=== PATIENT | female | born 1980 | race Asian ===

== ENCOUNTER 2019-06-23 10:59 | Emergency (ER) | payer OTHER ==
[~2019-06-23] VITALS: Ht 160 cm; Wt 79.4 kg
[2019-06-23] MEDS ORDERED: ONDANSETRON PF 4 MG/2 ML VIAL. IVP ONE (11:30)
[2019-06-23] MEDS ORDERED: MORPHINE SULFATE 4 MG/ML DISP.SYRIN. IV ONE ×2 (11:30→15:15)
--- NOTE | 2019-06-23 11:36 | PHYS DOC ---
Adult General Chief Complaint Chief Complaint: ABDOMINAL PAIN HPI HPI 38-year-old female presents with right lower quadrant abdominal pain. She was recently diagnosed with a uterine mass as well as appendicitis. Her surgery scheduled by [employer] for 6 days from now. The patient started having increased right lateral and right lower quadrant pain overnight. I comes and goes in waves. It is moderate to severe. After 7 AM this morning, the pain has been more intense and more frequent. She is concerned that she cannot wait for her surgery. She denies fever or chills. She is nauseous, but is not vomiting. Review of Systems Review of Systems Constitutional: Denies fever or chills [] Eyes: Denies change in visual acuity, redness, or eye pain [] HENT: Denies nasal congestion or sore throat [] Respiratory: Denies cough or shortness of breath [] Cardiovascular: No additional information not addressed in HPI [] GI: RLQ abdominal pain, nausea. Denies vomiting, bloody stools or diarrhea [] : Denies dysuria or hematuria [] Musculoskeletal: Denies back pain or joint pain [] Integument: Denies rash or skin lesions [] Neurologic: Denies headache, focal weakness or sensory changes [] Endocrine: Denies polyuria or polydipsia [] All other systems were reviewed and found to be within normal limits, except as documented in this note. Current Medications Current Medications Current Medications Medications (Trade) Dose Ordered Sig/[facility] Start Time Stop Time Status Last Admin Dose Admin Morphine Sulfate (Morphine 4mg Syringe) 4 mg 1X ONCE 06/23/19 11:30 06/23/19 11:31 DC 06/23/19 11:26 4 MG Ondansetron HCl (Zofran) 4 mg 1X ONCE 06/23/19 11:30 06/23/19 11:31 DC 06/23/19 11:27 4 MG Allergies Allergies Allergies Coded Allergies Type Severity Reaction Last Updated Verified sodium bicarbonate Allergy Intermediate 06/23/19 Yes sodium chloride Allergy Intermediate 06/23/19 Yes Physical Exam Physical Exam Constitutional: Well developed, well nourished, mild acute distress, non-toxic appearance. [] HENT: Normocephalic, atraumatic, bilateral external ears normal, oropharynx moist, no oral exudates, nose normal. [] Eyes: PERRLA, EOMI, conjunctiva normal, no discharge. [] Neck: Normal range of motion, no tenderness, supple, no stridor. [] Cardiovascular:Heart rate regular rhythm, no murmur [] Lungs & Thorax: Bilateral breath sounds clear to auscultation [] Abdomen: Bowel sounds normal, soft, moderate RLQ tenderness without rebound, no masses, no pulsatile masses. [] Skin: Warm, dry, no erythema, no rash. [] Back: No tenderness, no CVA tenderness. [] Extremities: No tenderness, no cyanosis, no clubbing, ROM intact, no edema. [] Neurologic: Alert and oriented X 3, normal motor function, normal sensory function, no focal deficits noted. [] Psychologic: Affect normal, judgement normal, mood normal. [] EKG EKG [] Radiology/Procedures Radiology/Procedures [] Impressions: PQRS Compliance Statement: One or more of the following individualized dose reduction techniques were utilized for this examination: 1. Automated exposure control 2. Adjustment of the mA and/or kV according to patient size 3. Use of iterative reconstruction technique CT abdomen/pelvis with contrast 06/23/2019 11:14 AM INDICATION: Right lower arm normal pain with recent diagnosis of appendicitis. Surgery scheduled with increased pain. COMPARISON: None available TECHNIQUE: Multiple axial CT images of the abdomen and pelvis were obtained after the intravenous administration of nonionic contrast. Coronal and sagittal reformats are provided. FINDINGS: 5 mm solid noncalcified pulmonary nodule in the lateral left lower lobe most favors benign noncalcified granulomatous disease in this age group. Heart size is within normal limits. Liver, spleen, bilateral adrenal glands and pancreas are normal in appearance. Gallbladder surgically absent. Abdominal aorta is normal in course and caliber. No pathologically enlarged lymph nodes are identified in abdomen and pelvis. There is no free fluid or free intracranial air. There is wall thickening and dilatation of the appendix measuring up to 13 mm with periappendiceal plantar changes compatible with appendicitis. No periappendiceal abscess or perforation. Mild reactive changes involving the terminal ileum. Septated cystic density in the right adnexa measures 4.0 x 4.2 cm and may represent a right ovary with follicular changes. There is a homogeneously enhancing circumscribed mass involving the right uterine fundus measuring 4.4 x 5.0 cm compatible with uterine leiomyoma. No suspicious left adnexal mass. For the changes are noted in the left adnexa with a dominant follicle measuring 2.8 cm. Prostate cancer on urinary bladder is within normal limits given degree of distention. No suspicious osseous normality is identified. IMPRESSION: 1. Appendicitis without periappendiceal abscess or perforation. Comparison with prior imaging may be of benefit to assess for any interval change. 2. Septated cystic density in the right adnexa measures 4.0 x 4.2 cm. Hemorrhagic cyst versus endometrioma versus 2 adjacent dominant follicles may have similar appearance. 3 month follow-up pelvic ultrasound may be of benefit potential resolution. If there is pain specified to this region, further evaluation with ultrasound may be of benefit to assess for perfusion to the ovaries. Electronically signed by: Elham Almanza MD (06/23/2019 1:13 PM) [id number] DICTATED AND SIGNED BY: ELHAM ALMANZA MD DATE: 06/23/19 1313 CC: BRYSON VILLALTA DO; JANETH WALTON DO, MPH ~ Course & Med Decision Making Course & Med Decision Making Pertinent Labs and Imaging studies reviewed. (See chart for details) The patient's labs are unremarkable except for slightly low potassium at 3.3. She has no significant white count. Her urinalysis is negative for infection. H er CT of the abdomen and pelvis continues to show known pelvic masses as well as appendicitis. There is no current abscess or perforation. I will speak with her surgeon. The surgeon environmental analyst, Dr. Sarika Gonsales has accepted the patient for transfer to [facility]. The patient is in agreement with this plan. She will go by ambulance. I have given her additional 4 mg of morphine for her pain. [] Dragon Disclaimer Dragon Disclaimer This electronic medical record was generated, in whole or in part, using a voice recognition dictation system. Departure Departure: Impression: Primary Impression: Uterine mass Additional Impression: Appendicitis Disposition: 02 XFER [facility]-TRM HOSP Condition: STABLE Referrals: JANETH WALTON DO, MPH (PCP) Problem Qualifiers Additional Impression: Appendicitis Appendicitis type: acute appendicitis Acute appendicitis type: with localized peritonitis Appendicitis gangrene presence: without gangrene Appendicitis perforation presence: without perforation Appendicitis abscess presence: without abscess Qualified Codes: K35.30 - Acute appendicitis with localized peritonitis, without perforation or gangrene BRYSON VILLALTA DO Jun 23, 2019 11:36
[2019-06-23 11:40] LABS: BASO % 1 % (0-3); EOS % 1 % (0-3); HEMATOCRIT 44.8 % (36.0-47.0); HEMOGLOBIN 14.9 g/dL (12.0-15.5); LYMPH # 1.2 x10^3/uL (1.0-4.8); LYMPH % 16 % (24-48); MEAN CORPUSCULAR HEMOGLOBIN 30 pg (25-35); MEAN CORPUSCULAR HGB CONC 33 g/dL (31-37); MEAN CORPUSCULAR VOLUME 91 fL (79-100); MONO # 0.7 x10^3/uL (0.0-1.1); MONO % 9 % (0-9); NEUT # 5.6 x10^3uL (1.8-7.7); NEUT % 74 % (31-73); PLATELET COUNT 310 x10^3/uL (140-400); RED BLOOD COUNT 4.94 x10^6/uL (3.50-5.40); RED CELL DISTRIBUTION WIDTH 13.5 % (11.5-14.5); WHITE BLOOD COUNT 7.6 x10^3/uL (4.0-11.0)
[2019-06-23] MEDS ORDERED: PROCHLORPERAZINE 10 MG/2 ML VIAL. IV ONE (11:45)
[2019-06-23] MEDS ORDERED: CONTRAST GIVEN MC PRN (11:45)
[2019-06-23 11:50] LABS: ALBUMIN 3.8 g/dL (3.4-5.0); ALBUMIN/GLOBULIN RATIO 0.9 (1.0-1.7); CALCIUM 8.5 mg/dL (8.5-10.1); CREATININE 0.5 mg/dL (0.6-1.0); GFR 139.6; POTASSIUM 3.3 mmol/L (3.5-5.1); TOTAL BILIRUBIN 0.6 mg/dL (0.2-1.0); TOTAL PROTEIN 8.2 g/dL (6.4-8.2)
[2019-06-23] MEDS ORDERED: IOHEXOL 300 MG/ML 75 ML VIAL. IV ONE (12:00)
[2019-06-23 13:08] LABS: BACTERIA,URINE MOD /HPF (0-FEW); BILIRUBIN,URINE NEG (NEG); CLARITY,URINE HAZY; COLOR,URINE YELLOW; GLUCOSE,URINE NEG (NEG); NITRITE,URINE NEG (NEG); RBC,URINE 0 /HPF (0-2); SQUAMOUS EPITHELIAL CELL,UR OCC /LPF; UROBILINOGEN,URINE 0.2 mg/dL (0.2 mg/dL)
--- NOTE | 2019-06-23 13:16 | RAD ---
PQRS Compliance Statement: One or more of the following individualized dose reduction techniques were utilized for this examination: 1. Automated exposure control 2. Adjustment of the mA and/or kV according to patient size 3. Use of iterative reconstruction technique CT abdomen/pelvis with contrast 06/23/2019 11:14 AM INDICATION: Right lower arm normal pain with recent diagnosis of appendicitis. Surgery scheduled with increased pain. COMPARISON: None available TECHNIQUE: Multiple axial CT images of the abdomen and pelvis were obtained after the intravenous administration of nonionic contrast. Coronal and sagittal reformats are provided. FINDINGS: 5 mm solid noncalcified pulmonary nodule in the lateral left lower lobe most favors benign noncalcified granulomatous disease in this age group. Heart size is within normal limits. Liver, spleen, bilateral adrenal glands and pancreas are normal in appearance. Gallbladder surgically absent. Abdominal aorta is normal in course and caliber. No pathologically enlarged lymph nodes are identified in abdomen and pelvis. There is no free fluid or free intracranial air. There is wall thickening and dilatation of the appendix measuring up to 13 mm with periappendiceal plantar changes compatible with appendicitis. No periappendiceal abscess or perforation. Mild reactive changes involving the terminal ileum. Septated cystic density in the right adnexa measures 4.0 x 4.2 cm and may represent a right ovary with follicular changes. There is a homogeneously enhancing circumscribed mass involving the right uterine fundus measuring 4.4 x 5.0 cm compatible with uterine leiomyoma. No suspicious left adnexal mass. For the changes are noted in the left adnexa with a dominant follicle measuring 2.8 cm. Prostate cancer on urinary bladder is within normal limits given degree of distention. No suspicious osseous normality is identified. IMPRESSION: 1. Appendicitis without periappendiceal abscess or perforation. Comparison with prior imaging may be of benefit to assess for any interval change. 2. Septated cystic density in the right adnexa measures 4.0 x 4.2 cm. Hemorrhagic cyst versus endometrioma versus 2 adjacent dominant follicles may have similar appearance. 3 month follow-up pelvic ultrasound may be of benefit potential resolution. If there is pain specified to this region, further evaluation with ultrasound may be of benefit to assess for perfusion to the ovaries. Electronically signed by: Deepthi Vicente MD (06/23/2019 1:13 PM) [id number]
[2019-06-23 18:55] VITALS: BP 120/84
== END 2019-06-23 19:35 | disposition short-term general hospital (02) ==
LOC: ER 10:59
DX: K35.30 Acute appendicitis with localized peritonitis, without perforation or gangrene (principal); N85.8 Other specified noninflammatory disorders of uterus; Z88.8 Allergy status to other drugs, medicaments and biological substances
CPT/HCPCS: 36415; 74177; 80053; 81001; 81025; 84484; 85025; 87086; 96374; 96375; 96376; 99285; J0780; J2270; J2405; Q9967; 87186